=== PATIENT | male | born 1995 | race Caucasian/White ===

== ENCOUNTER 2018-08-20 11:41 | Outpatient (CLI) | payer OTHER | END 2018-08-20 19:13 | disposition home or self-care (01) | LOC: RAD 11:41 | DX: R05 Cough (principal) ==

== ENCOUNTER 2020-11-03 02:00 | Emergency (ER) | payer OTHER ==
[~2020-11-03] VITALS: Ht 182.9 cm; Wt 96.6 kg
[2020-11-03 02:46] LABS: PLATELET COUNT 285 K/uL (142-355)
[2020-11-03 03:00] LABS: POTASSIUM 3.4 mmol/L (3.6-5.2); SODIUM 143 mmol/L (136-145)
[2020-11-03 03:54] VITALS: BP 139/82; TEMP 97
== END 2020-11-03 03:54 | disposition home or self-care (01) ==
LOC: ED 02:00
PROVIDERS: Family Medicine
DX: R00.0 Tachycardia, unspecified (principal)
CPT/HCPCS: 80053; 80307; 82550; 82553; 84484; 85027; 93005; 96374; 99284; J3490